=== PATIENT | female | born 1985 | race Two or more races ===

== ENCOUNTER 2016-08-26 18:49 | Emergency (ER) | payer SELFPAY ==
--- NOTE | 2016-08-26 19:41 | NUR ---
LWBT. NO S/S OF RESP DISTRESS NOTED. DENIES SOB/CP/THROAT TIGHTNESS/TONGUE SWELLING
== END 2016-08-26 19:42 | disposition left against medical advice (07) ==
LOC: ER 19:00
DX: Z53.21 Procedure and treatment not carried out due to patient leaving prior to being seen by health care provider (principal)

== ENCOUNTER 2016-08-27 13:18 | Emergency (ER) | payer SELFPAY ==
[~2016-08-27] VITALS: Ht 149.9 cm; Wt 81.6 kg
[2016-08-27 13:18] VITALS: BP 140/87
== END 2016-08-27 14:22 | disposition home or self-care (01) ==
LOC: ER 13:19
DX: L50.9 Urticaria, unspecified (principal); F17.200 Nicotine dependence, unspecified, uncomplicated
CPT/HCPCS: 99283; 99406; A4606; Z7610

== ENCOUNTER 2021-09-02 21:59 | Emergency (ER) | payer SELFPAY ==
[~2021-09-02] VITALS: Ht 149.9 cm; Wt 82.1 kg
--- NOTE | 2021-09-02 22:17 | NUR ---
BIBSELF C/O VAGINAL BLEEDING X 1 HR WITH CRAMPS + PREG X8 WEEKS. PT AWAKE AND ALERT BREATHING EVEN AND UNLABORED. CHANGED INTO GOWN AND PLACED ON MONITOR AND V/S WNL.
--- NOTE | 2021-09-02 22:18 | NUR ---
URINE COLLECTED ANS SENT TO LAB
--- NOTE | 2021-09-02 22:50 | NUR ---
ballistic technician at bedside
[2021-09-02 23:06] LABS: BILIRUBIN,URINE NEGATIVE (NEGATIVE); COLOR,URINE YELLOW (YELLOW); LEUKOCYTE ESTERASE ,URINE NEGATIVE (NEGATIVE); NITRITE, URINE NEGATIVE (NEGATIVE); PROTEIN,URINE NEGATIVE (NEGATIVE); UGLUCOSE NEGATIVE (NEGATIVE); UROBILINOGEN,URINE 0.2 EU/dL (0.2)
[2021-09-02 23:07] LABS: BACTERIA,URINE Rare /HPF (None Seen); SQUAMOUS EPITHELIAL CELL,UR Few /HPF (None Seen); WBC,URINE 0-2 /HPF (0-3)
[2021-09-03 01:15] VITALS: BP 131/70
--- NOTE | 2021-09-03 01:15 | NUR ---
Patient discharged to home in stable condition. Written and verbal after care instructions given. Patient verbalizes understanding of instruction.
== END 2021-09-03 01:16 | disposition home or self-care (01) ==
LOC: ER 22:02
DX: O20.0 Threatened abortion (principal); Z3A.01 Less than 8 weeks gestation of pregnancy; F17.200 Nicotine dependence, unspecified, uncomplicated; Z60.2 Problems related to living alone
CPT/HCPCS: 36415; 76856-TC; 81001; 84702-TC; 86850-TC